=== PATIENT | male | born 1990 | race Caucasian/White ===

== ENCOUNTER 2018-01-21 13:16 | Emergency (ER) | payer BC, SELFPAY ==
--- NOTE | 2018-01-21 14:37 | RAD REPORT ---
EXAM DESCRIPTION: RAD - Knee Right 3 View - 01/21/2018 2:17 pm CLINICAL HISTORY: Twisting injury right knee. COMPARISON: None. FINDINGS: No fracture or dislocation seen. Small suprapatellar joint effusion.
--- NOTE | 2018-01-21 15:20 | ER ---
Nurse's Notes [facility] Name: Erasmo Forman Age: 27 yrs Sex: Male : 1990 Arrival Date: 01/21/2018 Time: 13:19 Bed 11 Private MD: Diagnosis: Pain in right knee Presentation: 01/21 13:21 Presenting complaint: Patient states: "I fell yesterday and twisted my knee". Pt c/o aa5 right knee pain. Transition of care: patient was not received from another setting of care. Onset of symptoms was January 2018. Initial Sepsis Screen: Does the patient meet any 2 criteria? No. Patient's initial sepsis screen is negative. Does the patient have a suspected source of infection? No. Patient's initial sepsis screen is negative. Care prior to arrival: None. 13:21 Method Of Arrival: Ambulatory aa5 13:21 Acuity: VIKA 4 aa5 Historical: - Allergies: 13:22 No Known Allergies; aa5 - Home Meds: 13:22 None [Active]; aa5 - PSHx: 13:22 shoulder surgery - metal plate; aa5 - Immunization history:: Adult Immunizations up to date. - Social history:: Smoking status: Patient uses tobacco products, smokes one pack cigarettes per day. Screenin:25 Abuse screen: Denies threats or abuse. Denies injuries from another. Nutritional iw screening: No deficits noted. Tuberculosis screening: No symptoms or risk factors identified. Fall Risk None identified. Assessment: 15:00 General: Appears in no apparent distress. comfortable, Behavior is calm, cooperative. iw Pain: Complains of pain in right knee. Neuro: Level of Consciousness is awake, alert, obeys commands, Oriented to person, place, time, Moves all extremities. Cardiovascular: Patient's skin is warm and dry. Respiratory: Respiratory effort is even, unlabored, Respiratory pattern is regular, symmetrical. Derm: Skin is pink, warm \\T\\ dry. normal. Musculoskeletal: Range of motion: intact in all extremities, Reports pain in right knee. Vital Signs: 13:22 BP 134 / 82; Pulse 92; Resp 16 S; Temp 98.5(TE); Pulse Ox 99% on R/A; Weight 90.72 kg aa5 (R); Height 5 ft. 8 in. (172.72 cm) (R); Pain 5/10; 13:22 Body Mass Index 30.41 (90.72 kg, 172.72 cm) aa5 ED Course: 13:19 Patient arrived in ED. as 13:22 Triage completed. aa5 13:22 Arm band placed on. aa5 14:18 Knee Right 3 View XRAY In Process Unspecified. EDMS 14:41 Kamilla Almeida FNP-C is [facility]. kb 14:41 Mahendra Doyle MD is Attending Physician. kb 15:25 Berkley Turner, RN is Primary Nurse. iw 15:25 Patient has correct armband on for positive identification. iw 15:25 No provider procedures requiring assistance completed. Patient did not have IV access iw during this emergency room visit. Administered Medications: No medications were administered Outcome: 15:19 Discharge ordered by . kb 15:26 Discharged to iw 15:26 Condition: good 15:26 Discharge instructions given to patient, Instructed on discharge instructions, follow up and referral plans. Demonstrated understanding of instructions, follow-up care. 15:26 Patient left the ED. iw Signatures: Dispatcher [employer] EDNC Kamilla Almeida FNP-C FNP-Tasneem Everett as Berkley Turner, RN RN iw Mackenzie Gonzalez, RN RN aa5
--- NOTE | 2018-01-21 15:20 | EDPHYS ---
Physician Documentation [facility] Name: Erasmo Forman Age: 27 yrs Sex: Male : 1990 Arrival Date: 01/21/2018 Time: 13:19 Bed 11 Private MD: ED Physician Mahendra Doyle HPI: 01/21 15:17 This 27 yrs old Male presents to ER via Ambulatory with complaints of Knee kb Pain. 15:17 The patient presents with an injury, pain, that is acute, swelling, tenderness. The kb complaints affect the right knee. Context: The problem was sustained at home, resulted from the patient falling, the patient can fully bear weight, the patient is able to ambulate, Problem is a result from a previous injury: No. Onset: The symptoms/episode began/occurred yesterday. Modifying factors: The symptoms are alleviated by nothing. the symptoms are aggravated by movement, bending knee. Associated signs and symptoms: The patient has no apparent associated signs or symptoms. Treatment prior to arrival includes: no previous treatment. Severity of symptoms: At their worst the symptoms were moderate, in the emergency department the symptoms are unchanged. The patient has not experienced similar symptoms in the past. The patient has not recently seen a physician. Pt states he twisted his knee and fell yesterday. States his knee cap dislocated at the time and went back into place. Today at work his knee cap dislocated again so he went home from work, put a knee brace on and came to get it looked at. Historical: - Allergies: 13:22 No Known Allergies; aa5 - Home Meds: 13:22 None [Active]; aa5 - PSHx: 13:22 shoulder surgery - metal plate; aa5 - Immunization history:: Adult Immunizations up to date. - Social history:: Smoking status: Patient uses tobacco products, smokes one pack cigarettes per day. ROS: 15:17 Constitutional: Negative for fever, chills, and weight loss, Cardiovascular: Negative kb for chest pain, palpitations, and edema, Respiratory: Negative for shortness of breath, cough, wheezing, and pleuritic chest pain, Abdomen/GI: Negative for abdominal pain, nausea, vomiting, diarrhea, and constipation, Skin: Negative for injury, rash, and discoloration, Neuro: Negative for headache, weakness, numbness, tingling, and seizure. 15:17 MS/extremity: Positive for injury or acute deformity, decreased range of motion, pain, swelling, tenderness, of the right knee. Exam: 15:09 Constitutional: This is a well developed, well nourished patient who is awake, alert, kb and in no acute distress. Head/Face: Normocephalic, atraumatic. ENT: Nares patent. No nasal discharge, no septal abnormalities noted. Tympanic membranes are normal and external auditory canals are clear. Oropharynx with no redness, swelling, or masses, exudates, or evidence of obstruction, uvula midline. Mucous membranes moist. Neck: Trachea midline, no thyromegaly or masses palpated, and no cervical lymphadenopathy. Supple, full range of motion without nuchal rigidity, or vertebral point tenderness. No Meningismus. Chest/axilla: Normal chest wall appearance and motion. Nontender with no deformity. No lesions are appreciated. Cardiovascular: Regular rate and rhythm with a normal S1 and S2. No gallops, murmurs, or rubs. Normal PMI, no JVD. No pulse deficits. Respiratory: Lungs have equal breath sounds bilaterally, clear to auscultation and percussion. No rales, rhonchi or wheezes noted. No increased work of breathing, no retractions or nasal flaring. Abdomen/GI: Soft, non-tender, with normal bowel sounds. No distension or tympany. No guarding or rebound. No evidence of tenderness throughout. Skin: Warm, dry with normal turgor. Normal color with no rashes, no lesions, and no evidence of cellulitis. Neuro: Awake and alert, GCS 15, oriented to person, place, time, and situation. Cranial nerves II-XII grossly intact. Motor strength 5/5 in all extremities. Sensory grossly intact. Cerebellar exam normal. Normal gait. 15:09 Musculoskeletal/extremity: Extremities: grossly normal except: noted in the right knee: decreased ROM, pain, swelling, tenderness, ROM: limited active range of motion due to pain, in the right knee, Circulation is intact in all extremities. Sensation intact. Weight bearing: able to fully bear weight. Vital Signs: 13:22 BP 134 / 82; Pulse 92; Resp 16 S; Temp 98.5(TE); Pulse Ox 99% on R/A; Weight 90.72 kg aa5 (R); Height 5 ft. 8 in. (172.72 cm) (R); Pain 5/10; 13:22 Body Mass Index 30.41 (90.72 kg, 172.72 cm) aa5 MDM: 14:41 Patient medically screened. kb 14:56 Data reviewed: vital signs, nurses notes. Data interpreted: Pulse oximetry: on room air kb is 99 %. Interpretation: normal. Counseling: I had a detailed discussion with the patient and/or guardian regarding: the historical points, exam findings, and any diagnostic results supporting the discharge/admit diagnosis, radiology results, the need for outpatient follow up, a orthopedic surgeon, to return to the emergency department if symptoms worsen or persist or if there are any questions or concerns that arise at home. 01/21 13:23 Order name: Knee Right 3 View XRAY; Complete Time: 14:41 aa5 Administered Medications: No medications were administered Disposition: 01/21/18 15:19 Discharged to Home. Impression: Pain in right knee. - Condition is Stable. - Discharge Instructions: Knee Pain, [id number]. - Work release form, Medication Reconciliation Form, Thank You Letter, Antibiotic Education, Prescription Opioid Use form. - Follow up: Emergency Department; When: As needed; Reason: Worsening of condition. Follow up: Private Physician; When: 2 - 3 days; Reason: Recheck today's complaints, Continuance of care, Re-evaluation by your physician. Addendum: 01/23/2018 10:47 Co-signature as Attending Physician, Mahendra Doyle MD I agree with the assessment and w a plan of care. Signatures: Dispatcher [employer] Kamilla Perez, LELA-C SHOVEL OILER-Ckb Berkley Turner, Mackenzie Covington RN, RN RN aa5 Mahendra Doyle MD MD wa Corrections: (The following items were deleted from the chart) 01/21 15:26 15:19 01/21/2018 15:19 Discharged to Home. Impression: Pain in right knee. Condition is iw Stable. Forms are Medication Reconciliation Form, Thank You Letter, Antibiotic Education, Prescription Opioid Use. Follow up: Emergency Department; When: As needed; Reason: Worsening of condition. Follow up: Private Physician; When: 2 - 3 days; Reason: Recheck today's complaints, Continuance of care, Re-evaluation by your physician. kb
[2018-01-21 15:29] VITALS: BP 134/82; TEMP 98.5; O2SAT 99
== END 2018-01-21 15:26 | disposition home or self-care (01) ==
LOC: ER 13:16
DX: M25.561 Pain in right knee (principal)
CPT/HCPCS: 99283

== ENCOUNTER 2018-10-08 15:59 | Emergency (ER) | payer SELFPAY ==
[2018-10-08 16:25] LABS: Absolute Lymphocytes (CBC) 1.5 K/uL (0.7-4.9); Absolute Monocytes 1.1 K/uL (0.1-1.3); Absolute Neutrophil 9.1 K/uL (1.8-8.0); Basophils % 0.2 % (0-1.3); Eosinophils % 0.7 % (0-4.4); Hematocrit 44.6 % (39.6-49.0); Lymphocytes % 12.4 % (15.3-44.8); MPV 6.8 fL (7.6-11.3); Monocytes % 9.4 % (3.3-12.3); RBC Red Blood Cell Count 4.72 M/uL (4.33-5.43)
[2018-10-08] MEDS ORDERED: KETOROLAC 30 MG/ML INJ ONE (16:31)
[2018-10-08] MEDS ORDERED: ONDANSETRON 4 MG/2 ML VIAL ONE (16:31)
[2018-10-08] MEDS ORDERED: FENTANYL CITR 100 MCG/2 ML ONE (16:31)
[2018-10-08 16:47] LABS: ALT/SGPT 20 U/L (12-78); AST/SGOT 8 U/L (15-37); Albumin 3.6 g/dL (3.4-5.0); Alkaline Phosphatase 70 U/L (45-117); BUN Blood Urea Nitrogen 6 mg/dL (7-18); Bicarbonate 31 mmol/L (21-32); Bilirubin Direct < 0.1 mg/dL (0-0.2); Bilirubin Total 0.2 mg/dL (0.2-1.0); Glucose Level 131 mg/dL (74-106); Lipase 118 U/L (73-393); Potassium 3.6 mmol/L (3.5-5.1); Protein, Total 7.4 g/dL (6.4-8.2); Sodium Level 138 mmol/L (136-145)
--- NOTE | 2018-10-08 16:48 | RAD REPORT ---
EXAM DESCRIPTION: CT - Stone Protocol - 10/08/2018 4:33 pm CLINICAL HISTORY: Abdominal pain. Left flank pain/hematuria COMPARISON: None. TECHNIQUE: Computed axial tomography of the abdomen pelvis was obtained without oral or IV contrast. Lack of IV and oral contrast limits evaluation of solid organs, bowel, and vessels. Coronal reformat kai images were obtained and reviewed. All CT scans are performed using dose optimization technique as appropriate and may include automated exposure control or mA/KV adjustment according to patient size. FINDINGS: A renal calculus is not seen. An ureteral calculus is not noted. A bladder calculus is not present. Extrarenal pelves are present bilaterally. Mild prominence of the left renal pelvis is pres ent The liver, spleen, pancreas and adrenals appear grossly normal There is no evidence of diverticulitis. The appendix appears normal IMPRESSION: Negative for a genitourinary calculus Mild prominence of a left extrarenal pelvis. This may be normal or indicate a UPJ stricture
[2018-10-08] MEDS ORDERED: CEFTRIAXONE/SWI 1gm 1 GM/10 ML SYR ONE (17:09)
[2018-10-08 17:47] LABS: Urine RBC >50 /HPF (NONE SEEN)
[2018-10-08 17:48] LABS: Urine Amorphous Sediment 2+ /HPF (NONE SEEN); Urine Bacteria >50 /HPF (NONE SEEN); Urine Culture Reflex Order REFLEXED
[2018-10-08 17:48] LABS: Urine Blood 3+ (NEG); Urine Glucose TRACE (NEG); Urine Protein 3+ (NEG); Urine Specific Gravity 1.015 (1.005-1.030); Urine pH 8.5 (5.0-7.0)
[2018-10-08] MEDS ORDERED: NA CHLORIDE 0.9% 1,000 ML ONE (17:58)
--- NOTE | 2018-10-08 18:10 | RAD REPORT ---
EXAM DESCRIPTION: US - Scrotum Testicles - 10/08/2018 5:49 pm CLINICAL HISTORY: Left testicular pain COMPARISON: None FINDINGS: Right testicle measures 4.8 x 2 x 3.8 centimeters. Echotexture is homogeneous. Normal bloo d flow Left testicle measures 4.8 x 2 x 3.2 centimeters. Echotexture is homogeneous. Normal blood flow The epididymides are normal in size and echotexture. Normal blood flow is seen. IMPRESSION: Unremarkable exam
--- NOTE | 2018-10-08 18:16 | EDPHYS ---
Physician Documentation [facility] Name: Erasmo Forman Age: 28 yrs Sex: Male : 1990 Arrival Date: 10/08/2018 Time: 16:01 Bed 23 Private MD: None, None ED Physician Sandeep Brar HPI: 10/08 17:32 This 28 yrs old Male presents to ER via Wheelchair with complaints of Back jr8 Pain, Urinary Problem. 17:32 Onset: The symptoms/episode began/occurred gradually, 3 day(s) ago, and became worse jr8 and became persistent. The pain does not radiate. Associated signs and symptoms: Pertinent positives: hematuria. The problem was sustained from unknown cause. Modifying factors: The patient symptoms are alleviated by nothing, the patient symptoms are aggravated by nothing. Severity of symptoms: At their worst the symptoms were moderate, in the emergency department the symptoms are unchanged. The patient has not experienced similar symptoms in the past. The patient has not recently seen a physician. Patient stated that he has had left flank pain for the past few days. Today moved to right side. Pain became much worse. Has had hematuria for the past couple of days. Before back pain complained of left testicular pain on/off for some time. Historical: - Allergies: 16:09 No Known Allergies; aa5 - PMHx: 16:09 None; aa5 - PSHx: 16:09 jaw; aa5 - Immunization history:: Adult Immunizations up to date. - Ebola Screening: : No symptoms or risks identified at this time. - Social history:: Smoking status: unknown. ROS: 17:32 Eyes: Negative for injury, pain, redness, and discharge, ENT: Negative for injury, jr8 pain, and discharge, Neck: Negative for injury, pain, and swelling, Cardiovascular: Negative for chest pain, palpitations, and edema, Respiratory: Negative for shortness of breath, cough, wheezing, and pleuritic chest pain, Abdomen/GI: Negative for abdominal pain, nausea, vomiting, diarrhea, and constipation, MS/Extremity: Negative for injury and deformity, Skin: Negative for injury, rash, and discoloration, Neuro: Negative for headache, weakness, numbness, tingling, and seizure. 17:32 Back: Positive for flank pain, bilaterally. 17:32 : Positive for urinary symptoms, hematuria, testicular pain Negative for penile discharge, penile pain. Exam: 17:32 Eyes: Pupils equal round and reactive to light, extra-ocular motions intact. Lids and jr8 lashes normal. Conjunctiva and sclera are non-icteric and not injected. Cornea within normal limits. Periorbital areas with no swelling, redness, or edema. ENT: Nares patent. No nasal discharge, no septal abnormalities noted. Tympanic membranes are normal and external auditory canals are clear. Oropharynx with no redness, swelling, or masses, exudates, or evidence of obstruction, uvula midline. Mucous membranes moist. Neck: Trachea midline, no thyromegaly or masses palpated, and no cervical lymphadenopathy. Supple, full range of motion without nuchal rigidity, or vertebral point tenderness. No Meningismus. Cardiovascular: Regular rate and rhythm with a normal S1 and S2. No gallops, murmurs, or rubs. Normal PMI, no JVD. No pulse deficits. Respiratory: Lungs have equal breath sounds bilaterally, clear to auscultation and percussion. No rales, rhonchi or wheezes noted. No increased work of breathing, no retractions or nasal flaring. Abdomen/GI: Soft, non-tender, with normal bowel sounds. No distension or tympany. No guarding or rebound. No evidence of tenderness throughout. Back: No spinal tenderness. No costovertebral tenderness. Full range of motion. Skin: Warm, dry with normal turgor. Normal color with no rashes, no lesions, and no evidence of cellulitis. MS/ Extremity: Pulses equal, no cyanosis. Neurovascular intact. Full, normal range of motion. Neuro: Awake and alert, GCS 15, oriented to person, place, time, and situation. Cranial nerves II-XII grossly intact. Motor strength 5/5 in all extremities. Sensory grossly intact. Cerebellar exam normal. Normal gait. 17:32 : Male external genitalia: normal, no abrasion, no discharge, no erythema, no injury, no swelling, no tenderness, no evidence of ulceration, No indirect or direct hernias present bilaterally . Vital Signs: 18:05 BP 115 / 77; Pulse 102; Resp 18; Pulse Ox 99% ; tl3 18:45 BP 125 / 96; Pulse 84; Resp 20; Pulse Ox 100% on R/A; tl3 MDM: 16:07 Patient medically screened. jr8 18:13 Differential diagnosis: Hydronephrosis Neoplasm Pyelonephritis sprain, jr8 Ureterolithiasis. Data reviewed: vital signs, nurses notes, lab test result(s), radiologic studies, CT scan, ultrasound, and as a result, I will discharge patient. Data interpreted: Pulse oximetry: on room air is 99 %. Interpretation: normal. Counseling: I had a detailed discussion with the patient and/or guardian regarding: the historical points, exam findings, and any diagnostic results supporting the discharge/admit diagnosis, lab results, radiology results, the need for outpatient follow up, a urologist, to return to the emergency department if symptoms worsen or persist or if there are any questions or concerns that arise at home. 10/08 16:07 Order name: Basic Metabolic Panel; Complete Time: 16:50 [facility] 10/08 16:07 Order name: CBC with Diff; Complete Time: 16:32 10/08 16:07 Order name: Creatinine for Radiology; Complete Time: 16:50 [facility] 10/08 16:07 Order name: Hepatic Function; Complete Time: 16:50 [facility] 10/08 16:07 Order name: Lipase; Complete Time: 16:50 10/08 17:15 Order name: Urine Microscopic Only; Complete Time: 18:01 [facility] 10/08 16:21 Order name: CT Stone Protocol; Complete Time: 16:50 [facility] 10/08 17:01 Order name: US Scrotum Testicles; Complete Time: 18:13 [facility] 10/08 17:31 Order name: Urine Dipstick--Ancillary (enter results); Complete Time: 18:01 10/08 17:51 Order name: Urine Culture [facility] 10/08 16:07 Order name: IV Saline Lock; Complete Time: 16:18 10/08 16:07 Order name: Labs collected and sent; Complete Time: 16:18 [facility] 10/08 16:07 Order name: Urine Dipstick-Ancillary (obtain specimen); Complete Time: 17:36 Administered Medications: 16:26 Drug: fentaNYL (PF) 50 mcg Route: IVP; Infused Over: 2 mins; Site: left antecubital; tl3 17:09 Follow up: Response: No adverse reaction tl3 16:28 Drug: TORadol 30 mg Route: IVP; Infused Over: 2 mins; Site: right antecubital; tl3 17:10 Follow up: Response: No adverse reaction tl3 16:28 Drug: Zofran 4 mg Route: IVP; Infused Over: 2 mins; Site: right antecubital; tl3 17:10 Follow up: Response: No adverse reaction tl3 17:08 Drug: Rocephin 1 grams Route: IV; Rate: calculated rate; Site: right antecubital; tl3 Delivery: Primary tubing; 17:15 Follow up: IV Status: Completed infusion; IV Intake: 20ml tl3 17:19 Drug: NS 0.9% 1000 ml Route: IV; Rate: 1000 ml; Site: right antecubital; tl3 18:47 Follow up: IV Status: Completed infusion; IV Intake: 800ml tl3 18:22 Drug: fentaNYL (PF) 50 mcg Route: IVP; Infused Over: 2 mins; Site: right antecubital; tl3 18:47 Follow up: Response: Medication administered at discharge. tl3 Disposition: 10/08/18 18:15 Discharged to Home. Impression: Urinary tract infection, site not specified. - Condition is Stable. - Discharge Instructions: Urinary Tract Infection, Adult. - Prescriptions for Tylenol- Codeine #3 300-30 mg Oral Tablet - take 2 tablets by ORAL route every 6 hours As needed; 12 tablet. Doxycycline Monohydrate 100 mg Oral Tablet - take 1 tablet by ORAL route every 12 hours for 10 days; 20 tablet. - Medication Reconciliation Form, Thank You Letter, Antibiotic Education, Prescription Opioid Use form. - Follow up: Andrew Evans MD; When: 1 week; Reason: Recheck today's complaints, Continuance of care, Re-evaluation by your physician. - Problem is new. - Symptoms have improved. Addendum: 10/10/2018 07:49 Co-signature as Attending Physician, Sandeep Brar MD I agree with the assessment and c frye plan of care. Signatures: Dispatcher [employer] Sandeep Thorne MD MD cha Calderon, Audri, RN RN aa5 Wilber Miller PA PA jr8 Nicole Jerome RN RN tl3 Corrections: (The following items were deleted from the chart) 10/08 18:50 18:15 10/08/2018 18:15 Discharged to Home. Impression: Urinary tract infection, site tl3 not specified. Condition is Stable. Forms are Medication Reconciliation Form, Thank You Letter, Antibiotic Education, Prescription Opioid Use. Follow up: Andrew Evans; When: 1 week; Reason: Recheck today's complaints, Continuance of care, Re-evaluation by your physician. Problem is new. Symptoms have improved. jr8
--- NOTE | 2018-10-08 18:16 | ER ---
Nurse's Notes [facility] Name: Erasmo Forman Age: 28 yrs Sex: Male : 1990 Arrival Date: 10/08/2018 Time: 16:01 Bed 23 Private MD: None, None Diagnosis: Urinary tract infection, site not specified Presentation: 10/08 16:04 Presenting complaint: Patient states: left flank pain that began 5 days ago and has now aa5 moved to the right flank. Pt also reports blood in the urine x 5 days ago. Reports nausea, denies vomiting. 16:04 Transition of care: patient was not received from another setting of care. Onset of aa5 symptoms was September 2018. Risk Assessment: Do you want to hurt yourself or someone else? Patient reports no desire to harm self or others. Care prior to arrival: None. 16:04 Method Of Arrival: Wheelchair aa5 16:04 Acuity: VIKA 3 aa5 18:49 Initial Sepsis Screen: Does the patient meet any 2 criteria? No. Patient's initial tl3 sepsis screen is negative. Does the patient have a suspected source of infection? No. Patient's initial sepsis screen is negative. Historical: - Allergies: 16:09 No Known Allergies; aa5 - PMHx: 16:09 None; aa5 - PSHx: 16:09 jaw; aa5 - Immunization history:: Adult Immunizations up to date. - Ebola Screening: : No symptoms or risks identified at this time. - Social history:: Smoking status: unknown. Screenin:30 Abuse screen: Denies threats or abuse. Nutritional screening: No deficits noted. tl3 Tuberculosis screening: No symptoms or risk factors identified. Fall Risk None identified. Assessment: 16:30 General: Appears distressed, uncomfortable, slender, well groomed, well developed, well tl3 nourished, Behavior is cooperative, appropriate for age, anxious. Pain: Complains of pain in bilateral flank pain. Neuro: Level of Consciousness is awake, alert, obeys commands, Oriented to person, place, time, situation, Appropriate for age. Cardiovascular: Patient's skin is warm and dry. Respiratory: Airway is patent Respiratory effort is even, unlabored, Respiratory pattern is regular, symmetrical. GI: No signs and/or symptoms were reported involving the gastrointestinal system. : Reports burning with urination, bloody urine. 18:05 Reassessment: No changes from previously documented assessment. Patient and/or family tl3 updated on plan of care and expected duration. Pain level reassessed. Patient is alert, oriented x 3, equal unlabored respirations, skin warm/dry/pink. IV infusing without difficulty, family at bedside. 18:45 Reassessment: Patient and/or family updated on plan of care and expected duration. Pain tl3 level reassessed. Patient is alert, oriented x 3, equal unlabored respirations, skin warm/dry/pink. pt appears angry at discharge, refused use of wheelchair for discharge. Vital Signs: 18:05 BP 115 / 77; Pulse 102; Resp 18; Pulse Ox 99% ; tl3 18:45 BP 125 / 96; Pulse 84; Resp 20; Pulse Ox 100% on R/A; tl3 ED Course: 16:01 Patient arrived in ED. mr 16:01 None, None is Private Physician. mr 16:07 Wilber Miller PA is PHCP. jr8 16:07 Sandeep Brar MD is Attending Physician. jr8 16:07 Arm band placed on. aa5 16:08 Triage completed. aa5 16:29 Nicole Jerome, RN is Primary Nurse. tl3 16:30 Patient has correct armband on for positive identification. Bed in low position. Adult tl3 w/ patient. 16:30 No provider procedures requiring assistance completed. Initial lab(s) drawn, by ED tl3 staff, sent to lab. Inserted saline lock: 20 gauge in right antecubital area, using aseptic technique. Blood collected. 16:32 CT completed. Patient moved to CT via wheelchair. Patient moved back from CT. bq 16:33 CT Stone Protocol In Process Unspecified. EDMS 17:30 Urine collected: clean catch specimen, cloudy, tea colored, blood tinged, Amount jp3 Voided: 100mL. 17:36 Urine Dipstick--Ancillary (enter results) Sent. jp3 17:36 Urine Microscopic Only Sent. jp3 17:50 US Scrotum Testicles Sent. tl3 17:51 US Scrotum Testicles In Process Unspecified. EDMS 18:14 Andrew Evans MD is Referral Physician. jr8 18:24 Urine Culture Sent. jp3 18:49 IV discontinued, intact, bleeding controlled, No redness/swelling at site. Pressure tl3 dressing applied. Administered Medications: 16:26 Drug: fentaNYL (PF) 50 mcg Route: IVP; Infused Over: 2 mins; Site: left antecubital; tl3 17:09 Follow up: Response: No adverse reaction tl3 16:28 Drug: TORadol 30 mg Route: IVP; Infused Over: 2 mins; Site: right antecubital; tl3 17:10 Follow up: Response: No adverse reaction tl3 16:28 Drug: Zofran 4 mg Route: IVP; Infused Over: 2 mins; Site: right antecubital; tl3 17:10 Follow up: Response: No adverse reaction tl3 17:08 Drug: Rocephin 1 grams Route: IV; Rate: calculated rate; Site: right antecubital; tl3 Delivery: Primary tubing; 17:15 Follow up: IV Status: Completed infusion; IV Intake: 20ml tl3 17:19 Drug: NS 0.9% 1000 ml Route: IV; Rate: 1000 ml; Site: right antecubital; tl3 18:47 Follow up: IV Status: Completed infusion; IV Intake: 800ml tl3 18:22 Drug: fentaNYL (PF) 50 mcg Route: IVP; Infused Over: 2 mins; Site: right antecubital; tl3 18:47 Follow up: Response: Medication administered at discharge. tl3 Intake: 17:15 IV: 20ml; Total: 20ml. tl3 18:47 IV: 800ml; Total: 820ml. tl3 Outcome: 18:15 Discharge ordered by MD. avila 18:49 Discharged to home ambulatory. tl3 18:49 Condition: stable 18:49 Instructed on discharge instructions, follow up and referral plans. medication usage, Demonstrated understanding of instructions, follow-up care, medications, Prescriptions given X 2. 18:50 Patient left the ED. tl3 Signatures: Dispatcher [employer] DARLENEMN Tawanda Gretel neely OrquideagonsaloVesta Audri RN RN aa5 Wilber Miller PA PA jr8 Lowrey, Tammy, RN RN tl3 Benny Oliveira jp3 Corrections: (The following items were deleted from the chart) 16:08 16:04 Initial Sepsis Screen: Does the patient meet any 2 criteria? No. Patient's aa5 initial sepsis screen is negative. Does the patient have a suspected source of infection? No. Patient's initial sepsis screen is negative. aa5
[2018-10-08 19:01] VITALS: BP 125/96; O2SAT 100
== END 2018-10-08 18:50 | disposition home or self-care (01) ==
LOC: ER 15:59
DX: N39.0 Urinary tract infection, site not specified (principal)
CPT/HCPCS: 36415; 74176; 76377; 76870; 80048; 80076; 81003; 81015; 83690; 85025; 87077; 87086; 87088; 87186; J0696; J2405; J3010; J7030

== ENCOUNTER 2019-07-04 14:59 | Emergency (ER) | payer SELFPAY ==
[2019-07-04] MEDS ORDERED: LIDOCAINE 1% MPF 5 ML VIAL ONE (15:33)
[2019-07-04] MEDS ORDERED: TETANUS & DIPHTHERIA TOX,ADULT 0.5 ML VIAL ONE (15:34)
--- NOTE | 2019-07-04 16:03 | EDPHYS ---
Physician Documentation [facility] Name: Erasmo Forman Age: 29 yrs Sex: Male : 1990 Arrival Date: 07/04/2019 Time: 15:01 Bed 23 Private MD: DARLENE Physician Sandeep Brar HPI: 07/04 16:02 This 29 yrs old Male presents to ER via Ambulatory with complaints of Finger jr8 laceration. 16:02 Onset: The symptoms/episode began/occurred just prior to arrival. Associated signs and jr8 symptoms:. Pt accidently cut volar aspect of the right middle finger with nura machete. Historical: - Allergies: 15:26 No Known Allergies; tw2 - Home Meds: 15:26 None [Active]; tw2 - PMHx: 15:26 None; tw2 - PSHx: 15:26 jaw; tw2 - Immunization history:: Last tetanus immunization: unknown. - Social history:: Smoking status: . - Ebola Screening: : Patient denies travel to an Ebola-affected area in the 21 days before illness onset. ROS: 16:02 Constitutional: Negative for fever, chills, and weight loss, Eyes: Negative for injury, jr8 pain, redness, and discharge, Cardiovascular: Negative for chest pain, palpitations, and edema, Respiratory: Negative for shortness of breath, cough, wheezing, and pleuritic chest pain, Abdomen/GI: Negative for abdominal pain, nausea, vomiting, diarrhea, and constipation, MS/Extremity: Negative for injury and deformity, Neuro: Negative for headache, weakness, numbness, tingling, and seizure. 16:02 Skin: Positive for laceration(s). Exam: 16:02 Constitutional: This is a well developed, well nourished patient who is awake, alert, jr8 and in no acute distress. Head/Face: Normocephalic, atraumatic. Eyes: Pupils equal round and reactive to light, extra-ocular motions intact. Lids and lashes normal. Conjunctiva and sclera are non-icteric and not injected. Cornea within normal limits. Periorbital areas with no swelling, redness, or edema. Cardiovascular: Regular rate and rhythm with a normal S1 and S2. No gallops, murmurs, or rubs. Normal PMI, no JVD. No pulse deficits. Respiratory: Lungs have equal breath sounds bilaterally, clear to auscultation and percussion. No rales, rhonchi or wheezes noted. No increased work of breathing, no retractions or nasal flaring. Abdomen/GI: Soft, non-tender, with normal bowel sounds. No distension or tympany. No guarding or rebound. No evidence of tenderness throughout. Neuro: Awake and alert, GCS 15, oriented to person, place, time, and situation. Cranial nerves II-XII grossly intact. Motor strength 5/5 in all extremities. Sensory grossly intact. Cerebellar exam normal. Normal gait. 16:02 Skin: injury, laceration(s), the wound is approximately 3 cm(s), with a depth of 1 cm(s), of the palmar aspect of middle phalanx of right middle finger, that can be described as clean, no foreign body, linear, without bleeding. Vital Signs: 15:26 BP 117 / 86; Pulse 87; Resp 17; Temp 97.9; Pulse Ox 100% on R/A; Weight 88.45 kg (R); tw2 Height 5 ft. 8 in. (172.72 cm); Pain 2/10; 16:25 BP 121 / 81; Pulse 82; Resp 17 S; Pulse Ox 100% on R/A; ca1 15:26 Body Mass Index 29.65 (88.45 kg, 172.72 cm) tw2 Laceration: 16:02 Wound Repair of 3cm ( 1.2in ) subcutaneous laceration to palmar aspect of middle jr8 phalanx of right middle finger. Distal neuro/vascular/tendon intact. Anesthesia: Local anesthetic administered with 2 mls of 1% lidocaine. Wound prep: Moderate cleansing with hibiclenz by ar, Wound explored moderately, Copious irrigation. Skin closed with 3 5-0 Prolene using simple sutures and sterile technique. Patient tolerated well. MDM: 15:31 Patient medically screened. [facility] 16:00 Data reviewed: vital signs, nurses notes. Data interpreted: Pulse oximetry: on room air jr8 is 100 %. Interpretation: normal. Counseling: I had a detailed discussion with the patient and/or guardian regarding: the historical points, exam findings, and any diagnostic results supporting the discharge/admit diagnosis, the need for outpatient follow up, a family practitioner. Administered Medications: 16:04 Drug: Tetanus-Diphtheria Toxoid Adult 0.5 ml {Unloader: [employer]. Exp: ca1 01/31/2021. Lot #: [id number]. } Route: IM; Site: right deltoid; 16:24 Follow up: Response: No adverse reaction ca1 Disposition: 07/05 06:48 Co-signature as Attending Physician, Sandeep Brar MD I agree with the assessment and aminata plan of care. Disposition: 07/04/19 16:02 Discharged to Home. Impression: Laceration with foreign body of right middle finger without damage to nail. - Condition is Stable. - Discharge Instructions: Laceration Care, Adult, Suture Removal, Care After, Sutured Wound Care. - Medication Reconciliation Form, Thank You Letter form. - Follow up: Private Physician; When: 7 - 10 days; Reason: Wound Recheck, Recheck today's complaints, Re-evaluation by your physician. - Problem is new. - Symptoms have improved. Signatures: Sandeep Brar MD MD cha Roszak, Josh, PA PA jr8 Ramona Rowland RN RN tw2 Rebeca Weir RN RN ca1 Corrections: (The following items were deleted from the chart) 07/04 16:26 16:02 07/04/2019 16:02 Discharged to Home. Impression: Laceration with foreign body of ca1 right middle finger without damage to nail. Condition is Stable. Forms are Medication Reconciliation Form, Thank You Letter, Antibiotic Education, Prescription Opioid Use. Follow up: Private Physician; When: 7 - 10 days; Reason: Wound Recheck, Recheck today's complaints, Re-evaluation by your physician. Problem is new. Symptoms have improved. jr8
--- NOTE | 2019-07-04 16:03 | ER ---
Nurse's Notes [facility] Name: Erasmo Forman Age: 29 yrs Sex: Male : 1990 Arrival Date: 07/04/2019 Time: 15:01 Bed 23 Private MD: Diagnosis: Laceration with foreign body of right middle finger without damage to nail Presentation: 07/04 15:23 Presenting complaint: Patient states: i was sharpening a machete that was pretty nura, tw2 cut my middle finger on my RIGHT hand approx 45 mins ago. Transition of care: patient was not received from another setting of care. Onset of symptoms was July 04, 2019. Risk Assessment: Do you want to hurt yourself or someone else? Patient reports no desire to harm self or others. Initial Sepsis Screen: Does the patient meet any 2 criteria? No. Patient's initial sepsis screen is negative. Does the patient have a suspected source of infection? No. Patient's initial sepsis screen is negative. Care prior to arrival: None. 15:23 Method Of Arrival: Ambulatory tw2 15:23 Acuity: VIKA 4 tw2 Triage Assessment: 15:24 General: Appears in no apparent distress. Behavior is calm, cooperative, appropriate tw2 for age. 15:25 Pain: Complains of pain in palmar aspect of middle phalanx of right middle finger. tw2 Injury Description: Laceration sustained to palmar aspect of middle phalanx of right middle finger. Historical: - Allergies: 15:26 No Known Allergies; tw2 - Home Meds: 15:26 None [Active]; tw2 - PMHx: 15:26 None; tw2 - PSHx: 15:26 jaw; tw2 - Immunization history:: Last tetanus immunization: unknown. - Social history:: Smoking status: . - Ebola Screening: : Patient denies travel to an Ebola-affected area in the 21 days before illness onset. Screenin:35 Abuse screen: Denies threats or abuse. Denies injuries from another. Nutritional ca1 screening: No deficits noted. Tuberculosis screening: No symptoms or risk factors identified. Fall Risk None identified. Assessment: 15:35 General: Appears in no apparent distress. comfortable, Behavior is calm, cooperative, ca1 appropriate for age. Pain: Complains of pain in palmar aspect of middle phalanx of right middle finger Pain currently is 5 out of 10 on a pain scale. Neuro: Level of Consciousness is awake, alert, obeys commands, Oriented to person, place, time, situation. Cardiovascular: Heart tones S1 S2 present Capillary refill < 3 seconds Patient's skin is warm and dry. Respiratory: Airway is patent Respiratory effort is even, unlabored, Respiratory pattern is regular, symmetrical, Breath sounds are clear bilaterally. GI:. Derm: Skin is healthy with good turgor, Skin is pink, warm \T\ dry. Musculoskeletal: Circulation, motion, and sensation intact. Capillary refill < 3 seconds, Range of motion: intact in all extremities. Injury Description: Laceration sustained to palmar aspect of middle phalanx of right middle finger is clean, 0.5 to 2.5 cm long, not bleeding, was sustained less than 30 minutes ago. a small amount of bleeding noted at this time. 16:25 Reassessment: Patient appears in no apparent distress at this time. Patient is alert, ca1 oriented x 3, equal unlabored respirations, skin warm/dry/pink. Vital Signs: 15:26 BP 117 / 86; Pulse 87; Resp 17; Temp 97.9; Pulse Ox 100% on R/A; Weight 88.45 kg (R); tw2 Height 5 ft. 8 in. (172.72 cm); Pain 2/10; 16:25 BP 121 / 81; Pulse 82; Resp 17 S; Pulse Ox 100% on R/A; ca1 15:26 Body Mass Index 29.65 (88.45 kg, 172.72 cm) tw2 ED Course: 15:01 Patient arrived in ED. mr 15:14 Wilber Miller PA is PHCP. jr8 15:14 Sandeep Brar MD is Attending Physician. jr8 15:14 Wilber Miller PA is PHCP. jr8 15:14 Sandeep Brar MD is Attending Physician. jr8 15:24 Triage completed. tw2 15:24 Arm band placed on. tw2 15:26 Rebeca Weir, RN is Primary Nurse. ca1 15:35 Patient has correct armband on for positive identification. Bed in low position. Call ca1 light in reach. Side rails up X 1. Pulse ox on. NIBP on. 15:35 Patient did not have IV access during this emergency room visit. ca1 16:07 Assist provider with laceration repair on palmar aspect of middle phalanx of right ca1 middle finger that was 2.5 cm. or less using sutures. Set up tray. Performed by Wilber FERNÁNDEZ Dressed with 4X4s, Patient tolerated well. Administered Medications: 16:04 Drug: Tetanus-Diphtheria Toxoid Adult 0.5 ml {Fish And Wildlife Technician: [employer]. Exp: ca1 01/31/2021. Lot #: [id number]. } Route: IM; Site: right deltoid; 16:24 Follow up: Response: No adverse reaction ca1 Outcome: 16:02 Discharge ordered by MD. avila 16:25 Discharged to home ambulatory. ca1 16:25 Condition: stable 16:25 Discharge instructions given to patient, Instructed on discharge instructions, follow up and referral plans. wound care, Demonstrated understanding of instructions, follow-up care, wound care. 16:26 Patient left the ED. ca1 Signatures: Tawanda Gretel Wilber Mills PA PA jr8 Ramona Rowland, RN RN tw2 Rebeca Weir RN RN ca1 Corrections: (The following items were deleted from the chart) 15:25 15:24 Pain: Complains of pain in dorsal aspect of middle phalanx of right middle finger tw2 tw2
[2019-07-04 17:35] VITALS: TEMP 97.9; O2SAT 100
[2019-07-04 17:36] VITALS: BP 121/81
== END 2019-07-04 16:26 | disposition home or self-care (01) ==
LOC: ER 14:59
PROC: 0JQJ0ZZ Repair Right Hand Subcutaneous Tissue and Fascia, Open Approach (ICD-10-PCS; principal; 2019-07-04)
DX: S61.212A Laceration without foreign body of right middle finger without damage to nail, initial encounter (principal); W26.0XXA Contact with knife, initial encounter; Y93.9 Activity, unspecified; Y92.9 Unspecified place or not applicable; Z23 Encounter for immunization
CPT/HCPCS: 90471; 90714; 99283